=== PATIENT | male | born 1995 | race Hispanic/Latino ===

== ENCOUNTER 2025-05-12 00:59 | Emergency (ER) | payer OTHER ==
[~2025-05-12] VITALS: Ht 170.2 cm; Wt 145.1 kg
[2025-05-12 02:45] VITALS: PULSE 78; RESP 18; TEMP 98.3; O2SAT 100
[2025-05-12] MEDS ORDERED: DOXYCYCLINE HY100 MG PO (02:50)
== END 2025-05-12 03:02 | disposition home or self-care (01) ==
LOC: ER 02:25
DX: L05.91 Pilonidal cyst without abscess (principal); F81.9 Developmental disorder of scholastic skills, unspecified
CPT/HCPCS: 99282

== ENCOUNTER → 2025-07-18 | Day surgery (SDC) | payer OTHER ==
[2025-07-16 16:16] LABS: BASOPHILS % 0.6 % (0.0-1.0); EOSINOPHILS % 5.2 % (0.0-6.0); LYMPHOCYTES % 35.9 % (18.0-39.1); MONOCYTES % 6.0 % (4.4-11.3); NEUTROPHILS % 52.1 % (38.7-80.0); RED CELL DISTRIBUTION WIDTH 13.3 % (11.7-14.4)
[2025-07-16 16:30] LABS: EST GLOMERULAR FILTRATION RATE 114.0 ML/MIN (>=60)
[~2025-07-18] MED LIST: ACETAMINOPHEN 1000 MG/100 ML 100 ML IV ONE; CEFTRIAXONE 1 GM VIAL ONE; DOXYCYCLINE HY100 MG PO; FENTANYL CITRATE/PF 100MCG/2 ML INJ ONE; LIDOCAINE HCL 2% LOCAL INJ 5 ML SDV VIAL INJ ONE; MAGNESIUM OXID400 MG PO; PHENYLEPHRINE HCL 1% 10 MG/ML VIAL ONE; PROPOFOL IV EMULSION 10 MG/ML 20 ML VIAL ONE; ROCURONIUM BROMIDE 1 ML IV ONE; SEVOFLURANE INHAL SOLN 250 ML PEN BTL ONE; SODIUM CHLORIDE 0.9% INJ 10 ML VIAL ONE; SUCCINYLCHOLINE CHLORIDE 20 MG/ML 10ML VIAL ONE; VIT D3-VIT K21 EACH PO
[2025-07-18] MEDS: LACTATED RINGER'S 1,000 ML ONE (11:08)
[2025-07-18 12:10] VITALS: BP 119/73; PULSE 80; RESP 16; O2SAT 97
== END | disposition home or self-care (01) ==
LOC: OR 06:33
PROVIDERS: ATTEND Surgery
DX: L05.91 Pilonidal cyst without abscess (principal); K21.9 Gastro-esophageal reflux disease without esophagitis; E66.01 Morbid (severe) obesity due to excess calories; Z01.812 Encounter for preprocedural laboratory examination
CPT/HCPCS: 11772; 36415; 80053; 85025; 88304; J0131; J0330; J0696; J2003; J2371; J2704; J3010; J7121